=== PATIENT | male | born 1960 | race Asian ===

== ENCOUNTER 2021-05-26 08:26 | Emergency (ER) | payer OTHER ==
[2021-05-26] MEDS ORDERED: CALCIUM GLUCONATE 100 MG/ML 10 ML IVP ONE (08:31)
[2021-05-26] MEDS ORDERED: LIDOCAINE/PF 2% 5 ML SYRINGE IVP ONE (08:31)
[2021-05-26] MEDS ORDERED: EPINEPHrine 1:10,000 [1 MG/10 ML] SYRINGE IVP ONE (08:31)
[2021-05-26] MEDS ORDERED: SODIUM BICARBONATE [ADULT] 8.4% 50 MEQ/50 ML SYRINGE IVP ONE (08:31)
[2021-05-26] MEDS ORDERED: AMIODARONE HCL 50 MG/ML 3 ML VIAL IV ONE (08:31)
[2021-05-26 11:38] LABS: COVID AG,FIA SOURCE NASOPHARYNGEAL
== END 2021-05-26 08:44 ==
LOC: EDBD 08:30 → EMS 08:30
DX: I46.9 Cardiac arrest, cause unspecified (principal); Z20.822 Contact with and (suspected) exposure to COVID-19
CPT/HCPCS: 31500; 87426; 92950; 99291; J0171; J0282; J0610; J3490 ×2; U0003